=== PATIENT | female | born 1980 | race Hispanic/Latino ===

== ENCOUNTER 2019-12-25 07:52 | Day surgery (SDC) | payer BC ==
[2019-12-24 17:34] VITALS: BP 111/65
[2019-12-24 17:48] LABS: BASOPHILS % (AUTO) 0.6 % (0.0-5.0); EOSINOPHILS % (AUTO) 2.1 % (0.0-8.0); HEMATOCRIT 39.9 % (36-48); LYMPHOCYTES % (AUTO) 33.1 % (21.0-51.0); MEAN CORPUSCULAR HEMOGLOBIN 28.2 pg (27.0-33.0); MEAN CORPUSCULAR HGB CONC 32.1 g/dL (32.0-36.0); MEAN CORPUSCULAR VOLUME 87.9 fL (79-99); MONOCYTES % (AUTO) 7.4 % (3.0-13.0); NEUTROPHILS % (AUTO) 56.5 % (40.0-77.0); PLATELET COUNT (AUTO) 213 K/uL (130-400); RED BLOOD CELL COUNT(AUTO) 4.54 MIL/uL (4.00-5.50); RED CELL DISTRIBUTION WIDTH 13.3 % (11.0-15.5); WHITE BLOOD COUNT (AUTO) 9.6 K/uL (4.8-10.8)
[~2019-12-25] VITALS: Ht 152.4 cm; Wt 68.1 kg
[2019-12-25] VITALS (16 sets, daily range): BP systolic 98–129; BP diastolic 49–80
[~2019-12-25 07:52] MED LIST: CALDOLOR 800MG+NS 250ML 250 ML IV SCH; LACTATED RINGERS 1000ML 1,000 ML IV SCH
--- NOTE | 2019-12-25 08:20 | NUR ---
PRE-PROCEDURE AWAKE IN NO ACUTE DISTRESS/SURINDER KELLEY, TO ANALYTICS ANALYST PT AFTER PROCEDURE PHONE #[phone]. Addendum: 12/25/19 at 1042 by JAYDE WILSON RN RN SIDE RAILS UP X2, STRETCHER IN LOWEST POSITION, AND CALL LIGHT W/IN REACH.
--- NOTE | 2019-12-25 08:59 | NUR ---
BELONGINGS SECURITY AT BEDSIDE/PURSE WITH MAKEUP AND CELL PHONE, CLOTHING SENT TO SECURITY.
[2019-12-25] MEDS: CEFAZOLIN SODIUM 1 GM VIAL IVP SCH ×2 (09:11→10:14)
--- NOTE | 2019-12-25 09:12 | NUR ---
TEDS/SCDS APPLIED.
[2019-12-25] MEDS ORDERED: LIDOCAINE PF 2% 5ML ABBOJECT ONE (09:16)
[2019-12-25] MEDS ORDERED: MIDAZOLAM HCL 1 MG/ML 2ML VIAL ONE (09:17)
[2019-12-25] MEDS ORDERED: PROPOFOL 10 MG/ML 20ML VIAL IV ONE (09:18)
[2019-12-25] MEDS ORDERED: FENTANYL CITRATE PF 50 MCG/1 ML 2ML VIAL ONE ×2 (09:19→10:30)
[2019-12-25] MEDS ORDERED: ONDANSETRON HCL 4 MG/2 ML VIAL ONE (09:19)
[2019-12-25] MEDS ORDERED: ROCURONIUM 10MG/1ML SYR 10 MG/ML ML ONE (09:20)
[2019-12-25] MEDS ORDERED: GLYCOPYRROLATE 1 MG/5 ML SYRINGE ONE (10:30)
[2019-12-25] MEDS ORDERED: NEOSTIGMINE 5MG/5ML SYR IV ONE (10:30)
[2019-12-25] MEDS ORDERED: DEXAMETHASONE SOD PHOSPHATE 4 MG/ML 1ML VIAL ONE (10:30)
--- NOTE | 2019-12-25 12:00 | NUR ---
ASSESSMENT RECEIVED PT FROM PACU STAFF ALAN RN. PT DOING WELL. [id number]. PRASANNA PAD IN PLACE. SCANT BLEEDING NOTED.
--- NOTE | 2019-12-25 13:25 | NUR ---
DISCHARGE ORAL AND WRITTEN DISCHARGE INSTRUCTIONS GIVEN TO PT AND PTS BY MARV [facility]. NO OTHER QUESTIONS AT THIS TIME.
== END 2019-12-25 13:30 | disposition home or self-care (01) ==
LOC: DAH 07:52
PROVIDERS: ATTEND Obstetrics & Gynecology
DX: N92.1 Excessive and frequent menstruation with irregular cycle (principal); N85.4 Malposition of uterus; K21.9 Gastro-esophageal reflux disease without esophagitis
CPT/HCPCS: 36415; 58563; 85025; 86850; 86900; 86901; A4213; A4215; A4221; A4222; A4223; A4351; A4355; A4510; A4600; A4663; A6260; J0690; J1100; J1741; J2001; J2250; J2405; J2704; J2710; J3010 ×2; J3490; J7030 ×2; J7120